=== PATIENT | male | born 2000 | race Caucasian/White ===

== ENCOUNTER 2024-01-11 13:18 | Emergency (ER) | payer OTHER ==
[~2024-01-11] VITALS: Ht 180.3 cm; Wt 74.2 kg
[2024-01-11] MEDS ORDERED: RISA150S2 SQ (13:32)
[2024-01-11] MEDS: RABIES VACCINE HUMAN 2.5 INTERNATIONAL UNITS/ML VIAL IM ONE (17:45)
[2024-01-11] MEDS: BOOSTRIX VACCINE (TETANUS/DIPHTH/ACEL. PERTUSSIS) 0.5ML SYR IM ONE (17:50)
[2024-01-11] MEDS: RABIES IMMUNE GLOBULIN 1500 INTERNATIONAL UNIT/5ML VIAL IM.IMMUN ONE (18:09)
[2024-01-11 18:34] VITALS: BP 132/76; TEMP 97.8; O2SAT 100
== END 2024-01-11 18:36 | disposition home or self-care (01) ==
LOC: M ED 13:18
DX: S60.371A Other superficial bite of right thumb, initial encounter (principal); W55.51XA Bitten by raccoon, initial encounter; Y92.89 Other specified places as the place of occurrence of the external cause; Y93.89 Activity, other specified; Y99.0 Civilian activity done for income or pay

== ENCOUNTER 2024-01-14 07:37 | Emergency (ER) | payer OTHER ==
[~2024-01-14] VITALS: Ht 180.3 cm; Wt 73.0 kg
[2024-01-14 07:37] VITALS: BP 129/58; TEMP 97.8; O2SAT 99
[~2024-01-14 07:37] MED LIST: RISA150S2 SQ
[2024-01-14] MEDS: RABIES VACCINE HUMAN 2.5 INTERNATIONAL UNITS/ML VIAL IM.IMMUN ONE (09:04)
== END 2024-01-14 09:26 | disposition home or self-care (01) ==
LOC: M ED 07:37
DX: Z23 Encounter for immunization (principal); Z20.3 Contact with and (suspected) exposure to rabies